=== PATIENT | male | born 1955 | race Caucasian/White ===

== ENCOUNTER 2016-06-23 15:54 | Emergency (ER) | payer OTHER ==
[2016-06-23 17:45] LABS: BASOPHILS 0.2 % (0.0-2.0); EOSINOPHILS 0.3 % (0-7); HEMATOCRIT 44.6 % (42.0-54.0); HEMOGLOBIN 15.7 g/dL (13.5-17.5); IMMATURE GRANULOCYTES 0.6 % (0-5); LYMPHOCYTES 22.5 % (15-50); MCH 32.8 pg (26.0-34.0); MCHC 35.2 g/dL (31.0-37.0); MCV 93.1 fL (80.0-100.0); MEAN PLATELET VOLUME 9.8 fL (7.4-10.4); MONOCYTES 8.1 % (2-11); NEUTROPHILS 68.3 % (40-80); RBC 4.79 10x6/uL (4.20-6.10); RDW 14.4 % (11.5-14.5); WBC 12.3 10x3/uL (4.8-10.8)
[2016-06-23 17:47] LABS: PLATELET COUNT 478 10x3/uL (130-400)
[2016-06-23 18:01] LABS: ALBUMIN 4.1 g/dL (3.4-5.0); ALKALINE PHOSPHATASE 168 U/L (46-116); ALT (SGPT) 87 U/L (10-68); BILIRUBIN - TOTAL 0.83 mg/dL (0.2-1.3); CALC OSMOLALITY 277 mosm/kg (275-300); CALCIUM 9.2 mg/dL (8.5-10.1); CARBON DIOXIDE 29.5 mmol/L (21.0-32.0); CHLORIDE - SERUM 98 mmol/L (98-107); CREATININE - SERUM 0.8 mg/dL (0.6-1.3); GLUCOSE 88 mg/dL (74-106); POTASSIUM - SERUM 3.8 mmol/L (3.5-5.1); PROTEIN - SERUM 7.4 g/dL (6.4-8.2); SODIUM 140 mmol/L (136-145); UREA NITROGEN 13 mg/dL (7-18); eGFR NON AFRICAN AMERICAN > 90 mL/min (90-120)
[2016-06-23 18:13] LABS: CHOL - HDL RATIO 2.2 ratio (2.3-4.9); CHOLESTEROL, TOTAL 249 mg/dL (0-200); CREATINE KINASE 740 UL (21-232); HDL CHOLESTEROL 113 mg/dL (32-96); LDL CHOLESTEROL 117 mg/dL (0-100); TRIGLYCERIDE 98 mg/dL (30-200)
[2016-06-23 18:16] LABS: TROPONIN-I < 0.017 ng/mL (0.000-0.060)
== END 2016-06-23 21:09 | disposition short-term general hospital (02) ==
LOC: D.ER 15:54
PROVIDERS: Nurse Practitioner Acute Care
DX: R07.9 Chest pain, unspecified (principal); F10.10 Alcohol abuse, uncomplicated; J45.909 Unspecified asthma, uncomplicated; J44.9 Chronic obstructive pulmonary disease, unspecified; I10 Essential (primary) hypertension; E87.1 Hypo-osmolality and hyponatremia; E87.6 Hypokalemia; F17.200 Nicotine dependence, unspecified, uncomplicated; R00.0 Tachycardia, unspecified

== ENCOUNTER 2016-08-31 05:59 | Observation (INO) | payer OTHER ==
[2016-08-31] VITALS (7 sets, daily range): BP systolic 145–171; BP diastolic 90–100; Ht 165.1 cm; Wt 66.8 kg
[~2016-08-31] VITALS: Ht 165.1 cm; Wt 66.8 kg
[2016-08-31 06:47] LABS: BASOPHILS 0.2 % (0-2); EOSINOPHILS 0.1 % (0-7); HEMATOCRIT 41.4 % (42.0-54.0); HEMOGLOBIN 14.7 g/dL (13.5-17.5); IMMATURE GRANULOCYTES 0.9 % (0-5); LYMPHOCYTES 23.7 % (15-50); MCH 32.2 pg (26.0-34.0); MCHC 35.5 g/dL (31.0-37.0); MCV 90.6 fL (80.0-100.0); MEAN PLATELET VOLUME 9.3 fL (7.4-10.4); MONOCYTES 8.7 % (2-11); NEUTROPHILS 66.4 % (40-80); RBC 4.57 10x6/uL (4.20-6.10); RDW 15.1 % (11.5-14.5); WBC 13.9 10x3/uL (4.8-10.8)
[2016-08-31 06:49] LABS: PLATELET COUNT 265 10x3/uL (130-400)
[2016-08-31 06:57] LABS: ALBUMIN 3.9 g/dL (3.4-5.0); ALKALINE PHOSPHATASE 159 U/L (46-116); ALT (SGPT) 35 U/L (10-68); BILIRUBIN - TOTAL 0.66 mg/dL (0.2-1.3); CALC OSMOLALITY 273 mosm/kg (275-300); CALCIUM 8.8 mg/dL (8.5-10.1); CHLORIDE - SERUM 94 mmol/L (98-107); GLUCOSE 90 mg/dL (74-106); POTASSIUM - SERUM 3.6 mmol/L (3.5-5.1); PROTEIN - SERUM 7.5 g/dL (6.4-8.2); SODIUM 137 mmol/L (136-145); UREA NITROGEN 13 mg/dL (7-18); eGFR NON AFRICAN AMERICAN 81 mL/min (90-120)
[2016-08-31 07:10] LABS: CREATINE KINASE 202 UL (21-232)
[2016-08-31 07:13] LABS: TROPONIN-I < 0.017 ng/mL (0.000-0.060)
[2016-08-31 10:28] LABS: CKMB 2.1 U/L (0.0-3.6); CREATINE KINASE 205 UL (21-232); TROPONIN-I < 0.017 ng/mL (0.000-0.060)
--- NOTE | 2016-08-31 11:28 | NUR ---
1030 PT ADMITTED TOT THE ICU VIA WHEELCHAIR.. PT IS AWAKE AND ALERT STATES THAT HE TRIED TO KILL HIMSELF BY DRINKING LISTERINE HE HAS CHRONIS DEPRESSION AND HE HAS ATTEMPTED THIS BEFORE.. THERE IS A MIDLINE IV IN THE RIGHT UPPER INNER ARM AND A MVI IV BAG INFUSING.. SEE ADMISSION ASSESMENT FOR FINDINGS.. 1045 DR FLORES IN TO SEE PT PT IS REQQUESTING FOOD AND SOMETHING FOR HIS NERVES.. REG AHA DIET ORDERED AND ATIVAN IV.. 1100 ATIVAN GIVEN..
[2016-08-31 13:52] LABS: UDS - AMPHET NEGATIVE QUAL (NEGATIVE); UDS - BARB NEGATIVE QUAL (NEGATIVE); UDS - BENZO NEGATIVE QUAL (NEGATIVE); UDS - COCAINE NEGATIVE QUAL (NEGATIVE); UDS - METH NEGATIVE QUAL (NEGATIVE); UDS - OPIATE NEGATIVE QUAL (NEGATIVE); UDS - PCP NEGATIVE QUAL (NEGATIVE); UDS - THC NEGATIVE QUAL (NEGATIVE)
--- NOTE | 2016-08-31 13:56 | NUR ---
1300 100% diet eaten.. 1330 urine obtained and sent to lab for ua and uds as ordered.. consult for psych sent to [facility] .. pt keeps asking about more ativan..
[2016-08-31 14:07] LABS: APPEARANCE CLEAR (CLEAR); BILIRUBIN NEGATIVE (NEGATIVE); COLOR YELLOW (YELLOW); GLUCOSE NEGATIVE (NEGATIVE); KETONE SMALL mg/dL (NEGATIVE); LEUKOCYTE ESTERASE NEGATIVE (NEGATIVE); NITRITE NEGATIVE (NEGATIVE); PROTEIN TRACE mg/dL (NEGATIVE); SPECIFIC GRAVITY 1.015 (1.005-1.020); UROBILINOGEN NORMAL (NORMAL)
[2016-08-31 14:08] LABS: BACTERIA NONE SEEN /hpf (NONE SEEN); EPITHELIAL CELLS NSEEN /hpf (0-5); RED CELLS - URINE 0-5 /hpf (0-5); WHITE CELLS - URINE NSEEN /hpf (0-5)
--- NOTE | 2016-08-31 15:19 | NUR ---
1415 PT IS HIGHLY ANXIOUS AND IS CONTINUOUSLY REQUESTING ATIVAN EXPLAINED THAT IT WAS ORDERED EVERY 4 HOURS.. 1515 ATIVAN GIVEN.. 1525 LAB DRAWN
--- NOTE | 2016-08-31 17:51 | NUR ---
1630 PT MORE SETTLED AT THIS TIME.. DIET SERVED AND PT IS SITTING ON SIDE OF BED FFEEDING SELF.. 1730 100-% DIET EATEN .. NICUOTINE PASTCH ORDERED AND PLACED ON THE PT..
[2016-08-31 18:57] LABS: CKMB 2.2 U/L (0.0-3.6); TROPONIN-I < 0.017 ng/mL (0.000-0.060)
[2016-08-31 18:58] LABS: CREATINE KINASE 304 UL (21-232)
--- NOTE | 2016-08-31 19:40 | NUR ---
ASSESSMENT COMPLETE. S1S2. RR CLEAR. PT AMBULATES FREQUENTLY. LEFT UPPER ARM; MIDLINE; PATENT. PERRLA. AAO. VSS. NO DISTRESS NOTED. REFUSES TO LEAVE ON BP CUFF OR ECG LEADS. WILL CONTINUE TO MONITOR.
--- NOTE | 2016-08-31 20:27 | NUR ---
PT REQUEST FOR ATIVAN. GIVEN PER ORDERS. SEE EMAR FOR DETAILS.
[2016-08-31 22:28] LABS: CKMB 1.5 U/L (0.0-3.6)
[2016-08-31 22:29] LABS: CREATINE KINASE 388 UL (21-232); TROPONIN-I < 0.017 ng/mL (0.000-0.060)
--- NOTE | 2016-08-31 23:30 | NUR ---
REASSESSMENT COMPLETE. NO CHANGES FROM PREVIOUS ASSESSMENT. WILL CONTINUE TO MONITOR.
[2016-09-01 01:00] VITALS: BP 160/98
--- NOTE | 2016-09-01 01:38 | NUR ---
PT REQUEST ATIVAN. GIVEN PER ORDERS. SEE EMAR FOR DETAILS.
--- NOTE | 2016-09-01 03:15 | NUR ---
REASSESSMENT COMPLETE. NO CHANGES FROM PREVIOUS ASSESSMENT.
--- NOTE | 2016-09-01 07:00 | NUR ---
PT LYING IN BED AND APPEARS COMFORTABLE. GIVEN ATIVAN PER MARKETING SERVICES COORDINATOR. PT REFUSES TO STAY ON MONITOR. WILL CHECK VITAL SIGNS PT ALLOWS. NO CHANGES IN STATUS. WILL CONITNUE TO MONITOR
[2016-09-01 10:00] VITALS: BP 141/97
[2016-09-01] MEDS ORDERED: NORVASC5 MG PO (10:11)
[2016-09-01] MEDS ORDERED: BAYER CHEWABLE81 MG PO (10:11)
[2016-09-01] MEDS ORDERED: LIPITOR80 MG PO (10:12)
[2016-09-01] MEDS ORDERED: BACLOFEN20 M1 PO (10:13)
[2016-09-01] MEDS ORDERED: BUSPAR10 MG PO (10:14)
[2016-09-01] MEDS ORDERED: OPTIVE EYE DROP30 ML EACH EYE (10:16)
[2016-09-01] MEDS ORDERED: FOLIC ACID1 MG PO (10:17)
[2016-09-01] MEDS ORDERED: VITAMIN B-121000 MCG PO (10:17)
[2016-09-01] MEDS ORDERED: NEURONTIN800 MG PO (10:18)
[2016-09-01] MEDS ORDERED: IBUPROFEN400 MG PO (10:19)
[2016-09-01] MEDS ORDERED: LEVO-T112 MCG PO (10:19)
[2016-09-01] MEDS ORDERED: LIDOCAINE50 GM TOPICAL (10:20)
[2016-09-01 10:22] LABS: ALBUMIN 3.7 g/dL (3.4-5.0); ALKALINE PHOSPHATASE 156 U/L (46-116); ALT (SGPT) 31 U/L (10-68); BILIRUBIN - TOTAL 1.66 mg/dL (0.2-1.3); CALCIUM 8.5 mg/dL (8.5-10.1); CHLORIDE - SERUM 90 mmol/L (98-107); CREATININE - SERUM 0.8 mg/dL (0.6-1.3); GLUCOSE 131 mg/dL (74-106); POTASSIUM - SERUM 3.8 mmol/L (3.5-5.1); SODIUM 129 mmol/L (136-145); eGFR NON AFRICAN AMERICAN > 90 mL/min (90-120)
[2016-09-01] MEDS ORDERED: METOPROLOL TART25 MG PO (10:23)
[2016-09-01 10:24] LABS: CALC OSMOLALITY 258 mosm/kg (275-300); CARBON DIOXIDE 30.4 mmol/L (21.0-32.0); UREA NITROGEN 7 mg/dL (7-18)
[2016-09-01] MEDS ORDERED: REMERON15 MG PO (10:24)
[2016-09-01] MEDS ORDERED: MULTI-DAY VITAM1 TAB PO (10:26)
[2016-09-01] MEDS ORDERED: BACTROBAN CREAM15 GM TOPICAL (10:27)
[2016-09-01] MEDS ORDERED: NICODERM C1 PATCH .3 TRANSDERM (10:28)
[2016-09-01] MEDS ORDERED: REVIA50 MG PO (10:28)
[2016-09-01] MEDS ORDERED: MINIPRESS 5 MG C5 MG PO (10:29)
[2016-09-01] MEDS ORDERED: NICORETTE2 MG PO (10:29)
[2016-09-01] MEDS ORDERED: THIAMINE HCL50 MG PO (10:32)
[2016-09-01] MEDS ORDERED: VIAGRA100 MG PO (10:32)
[2016-09-01 10:41] LABS: BASOPHILS 0.1 % (0-2); EOSINOPHILS 0.8 % (0-7); HEMATOCRIT 39.5 % (42.0-54.0); HEMOGLOBIN 13.9 g/dL (13.5-17.5); IMMATURE GRANULOCYTES 0.5 % (0-5); LYMPHOCYTES 32.5 % (15-50); MCH 31.6 pg (26.0-34.0); MCHC 35.2 g/dL (31.0-37.0); MCV 89.8 fL (80.0-100.0); MEAN PLATELET VOLUME 9.4 fL (7.4-10.4); MONOCYTES 14.8 % (2-11); NEUTROPHILS 51.3 % (40-80); PLATELET COUNT 304 10x3/uL (130-400); WBC 15.5 10x3/uL (4.8-10.8)
--- NOTE | 2016-09-01 11:00 | NUR ---
Is the patient Alert and Oriented? Yes 0 * How many steps to enter\exit or inside your home? 0 0 * PCP [facility] [place], [place] 0 * [facility] * Preadmission Environment Home Alone 0 * ADLs Independent 0 * Equipment Cane 0 * List name and contact numbers for known caregivers / representatives who currently or will assist patient after discharge: PATIENT STATES NO FAMILY OR FRIENDS TO ASSIST HIM 0 * Community resources currently utilized None 0 * Additional services required to return to the preadmission environment? Yes 0 * Can the patient safely return to the preadmission environment? No 0 * Has this patient been hospitalized within the prior 30 days at any hospital? No PATIENT IS AWAKE AND ALERT. HE STATES HE SEES A PSYCHIATRIST, DR. MAINOR BOND AT THE [facility] [place]. HE [facility]. PATIENT STATES HE LIVES ALONE AND IS INDEPENDENT IN HIS ADL'S. HE STATES HE HAS BEEN LIVING AT A MOTEL. PATIENT STATES HIS PCP IS AT THE [facility] AND STATES: [id number] IS THE NAME. HE CANNOT PRONOUNCE THE MD NAME. PATIENT GETS HIS MEDS FROM THE [facility] [place]. HE USES A CANE. HE STATES HE HAS NEVER HAD HOME HEALTH CARE. HE STATES THERE ARE NO STEPS TO ENTER HIS MOTEL ROOM. PATIENT DENIES HAVING ANY FAMILY OR FRIENDS TO ASSIST HIM. HE STATES HE HAS AN UNCLE OUT OF TOWN BY DOES NOT KNOW HIS NUMBER. WILL CONTACT [facility] EXPEDITOR TO ATTEMPT TO GET PATIENT ON LIST FOR TRANSFER. CM TO FOLLOW.
--- NOTE | 2016-09-01 11:36 | NUR ---
I [facility] [place] AT [phone]. I SPOKE WITH DORINDA AND SHE IS SENDING A REFERRAL TO [facility]ED TEACH[facility], [facility] LARIOS. MAXIME CALLED ME BACK AND IS REQUESTING INFORMATION BE FAXED TO HER. CM TO FOLLOW.
--- NOTE | 2016-09-01 14:14 | NUR ---
INFORMATION WAS FAXED TO THE [facility]. I SPOKE WITH KOREY NELSON AT [phone]. SHE STATES THAT PATIENT IS NOT MEDICALLY STABLE AT THIS TIME WITH A NA 129 AND HIS WBC IS UP TO 15 TODAY FROM 13 YESTERDAY. SHE SUGGESTED THAT I MAKE REFERRAL FOR MEDICAL BED. I CONTACTED [place] BED EXPEDITOR, PETER, AND REQUESTED MEDICAL BED. SHE STATES THAT SHE WILL PLACE REQUEST FOR MED BED BUT PROBABLY WILL NOT HAPPEN TODAY DUE TO BED AVAILABILITY. WILL AWAIT CALL BACK REGARDING MED BED. CM TO FOLLOW.
--- NOTE | 2016-09-01 15:00 | NUR ---
PT RESTING COMFORTABLY AT THIS TIME. WAITING FOR INPATIENT PSYCH PLACEMENT.
[2016-09-01 20:00] VITALS: BP 151/106
--- NOTE | 2016-09-01 20:00 | NUR ---
ASSESSMENT COMPLETE, PT IS ALERT AND ORIENTED, ON RA WITH 97% O2 SAT. LUNGS CLEAR IN ALL LOBES, S1S2, CM-NSR, PATENT LEFT A/C PIV S/L. ABDOMEN IS SOFT AND ROUND WITH ACTIVE BS, URINAL AT BEDSIDE, ALL PPP, VSS, CALL LIGHT IN REACH
--- NOTE | 2016-09-01 21:15 | NUR ---
HS MEDS GIVEN, NO VISITORS AT THIS TIME, WILL CON'T TO MONITOR
[2016-09-01 23:00] VITALS: BP 127/90
--- NOTE | 2016-09-01 23:16 | NUR ---
REASSESSMENT COMPLETE, PT HAVING SM ANXIETY ATTACK, PRN ATIVAN GIVEN, PT MORE CALM AT THIS TIME
--- NOTE | 2016-09-02 01:00 | NUR ---
PT RESTING AT THIS TIME, NO NEEDS NOTED, WILL CON'T TO MONITOR
[2016-09-02 04:38] LABS: BASOPHILS 0.1 % (0-2); EOSINOPHILS 2.2 % (0-7); HEMATOCRIT 37.6 % (42.0-54.0); HEMOGLOBIN 13.3 g/dL (13.5-17.5); IMMATURE GRANULOCYTES 0.8 % (0-5); LYMPHOCYTES 33.8 % (15-50); MCH 32.4 pg (26.0-34.0); MCHC 35.4 g/dL (31.0-37.0); MCV 91.5 fL (80.0-100.0); MEAN PLATELET VOLUME 9.7 fL (7.4-10.4); NEUTROPHILS 53.1 % (40-80); PLATELET COUNT 297 10x3/uL (130-400); RBC 4.11 10x6/uL (4.20-6.10); RDW 14.8 % (11.5-14.5)
[2016-09-02 04:48] LABS: WBC 11.2 10x3/uL (4.8-10.8)
[2016-09-02 04:51] LABS: INR 0.95 (0.85-1.17); PROTIME 12.6 SECONDS (11.6-15.0)
[2016-09-02 05:23] LABS: ALBUMIN 3.3 g/dL (3.4-5.0); ALKALINE PHOSPHATASE 126 U/L (46-116); ALT (SGPT) 30 U/L (10-68); BILIRUBIN - TOTAL 1.17 mg/dL (0.2-1.3); C-REACTIVE PROTEIN 3.8 mg/dL (0.0-0.9); CALCIUM 8.5 mg/dL (8.5-10.1); CARBON DIOXIDE 29.1 mmol/L (21.0-32.0); CHLORIDE - SERUM 89 mmol/L (98-107); CREATININE - SERUM 0.8 mg/dL (0.6-1.3); GLUCOSE 96 mg/dL (74-106); PROTEIN - SERUM 6.6 g/dL (6.4-8.2); SODIUM 128 mmol/L (136-145); eGFR NON AFRICAN AMERICAN > 90 mL/min (90-120)
[2016-09-02 05:31] LABS: CALC OSMOLALITY 255 mosm/kg (275-300); POTASSIUM - SERUM 2.5 mmol/L (3.5-5.1); UREA NITROGEN 11 mg/dL (7-18)
--- NOTE | 2016-09-02 07:00 | NUR ---
ASSESSMENT COMPLETE PER FLOWSHEET. VOICES NO CO AT TIME.
[2016-09-02 08:00] VITALS: BP 129/89
--- NOTE | 2016-09-02 09:48 | NUR ---
CM REASSESSMENT NOTE: DEREK SPOKE WITH KATHRYN (CORNICE MAKER) AT [facility] REGARDING AVAILABILITY OF BEDS FOR PATIENT. KATHRYN STATED MA IS ON DIVERSION AT THIS TIME.
--- NOTE | 2016-09-02 10:00 | NUR ---
SLEEPING NO DISTRESS NOTED. SR UP X 2.
--- NOTE | 2016-09-02 11:29 | NUR ---
REFUSES TO WEAR RECRUITING COORDINATOR.
[2016-09-02 17:31] LABS: CALC OSMOLALITY 248 mosm/kg (275-300); CALCIUM 8.9 mg/dL (8.5-10.1); CARBON DIOXIDE 23.2 mmol/L (21.0-32.0); CHLORIDE - SERUM 90 mmol/L (98-107); CREATININE - SERUM 0.9 mg/dL (0.6-1.3); GLUCOSE 122 mg/dL (74-106); SODIUM 123 mmol/L (136-145); UREA NITROGEN 12 mg/dL (7-18); eGFR NON AFRICAN AMERICAN > 90 mL/min (90-120)
--- NOTE | 2016-09-02 18:09 | NUR ---
SODIUM 123 ON REPEATE LABS. CALLED AND REPORTED TO AMANDEEP LANDIS. REC'D ORDER FOR NS GENNY.
[2016-09-02 19:30] VITALS: BP 140/105
--- NOTE | 2016-09-02 19:30 | NUR ---
REPORT RECIEVED. ASSESSMENT COMPLETED. IV TUBING CHANGED LABLED AND SWAB CAPPED. PT LEFT WANTING TO GO TO SLEEP.
--- NOTE | 2016-09-02 22:00 | NUR ---
PT UP TO BSC. BACK IN BED AND POSITIONED FOR COMFORT.
--- NOTE | 2016-09-03 | NUR ---
PT SLEEPING WITH EYES CLOSED.
[2016-09-03 04:19] LABS: BASOPHILS 0.2 % (0-2); EOSINOPHILS 2.5 % (0-7); HEMATOCRIT 37.5 % (42.0-54.0); HEMOGLOBIN 12.9 g/dL (13.5-17.5); IMMATURE GRANULOCYTES 0.9 % (0-5); LYMPHOCYTES 32.4 % (15-50); MCH 31.9 pg (26.0-34.0); MCHC 34.4 g/dL (31.0-37.0); MCV 92.6 fL (80.0-100.0); MEAN PLATELET VOLUME 9.7 fL (7.4-10.4); MONOCYTES 11.3 % (2-11); NEUTROPHILS 52.7 % (40-80); PLATELET COUNT 306 10x3/uL (130-400); RBC 4.05 10x6/uL (4.20-6.10); RDW 14.7 % (11.5-14.5); WBC 12.7 10x3/uL (4.8-10.8)
[2016-09-03 04:36] LABS: CALC OSMOLALITY 268 mosm/kg (275-300); CALCIUM 8.7 mg/dL (8.5-10.1); CARBON DIOXIDE 28.4 mmol/L (21.0-32.0); CHLORIDE - SERUM 98 mmol/L (98-107); CREATININE - SERUM 0.9 mg/dL (0.6-1.3); GLUCOSE 95 mg/dL (74-106); POTASSIUM - SERUM 3.7 mmol/L (3.5-5.1); SODIUM 134 mmol/L (136-145); UREA NITROGEN 14 mg/dL (7-18); eGFR NON AFRICAN AMERICAN > 90 mL/min (90-120)
[2016-09-03 09:00] VITALS: BP 135/92; BP 145/78
--- NOTE | 2016-09-03 09:42 | NUR ---
I SPOKE WITH DORINDA AT THE [facility]. SHE IS GOING TO GIVE THE TRANSFER INFORMATION TO MAXIME LARIOS APN. SHE WILL MAKE DETERMINATION IF HE CAN COME TO THE [facility] AND CALL ME FOR TRANSFER. THEY WERE GIVEN DR. FLORES'S CELL NUMBER FOR DOC TO DOC IF NEEDED. CM TO FOLLOW.
--- NOTE | 2016-09-03 09:51 | NUR ---
NUTRITION MONITORING & EVAL CHART REVIEWED. REMAINS AT LOW NUTRITIONAL RISK. RD FOLLOWING
--- NOTE | 2016-09-03 10:03 | NUR ---
RECEIVED CALL BACK FROM KOREY NELSON AT [facility]. SHE ASKED THAT I FAX HER THE UPDATED LAB TO [phone]. HER NUMBER IS [phone]. I HAVE FAXED UPDATED INFORMATION TO HER FOR REVIEW AND WILL AWAIT CB.
--- NOTE | 2016-09-03 14:28 | NUR ---
I RECEIVED CB FROM KOREY NELSON AT [facility]. SHE STATES THAT THE PSYCH DR. COWART REQUESTS THAT WE DO A REPEAT CBC, LYTES, CHEST XRAY AND HAVE THE PHYSICIAN DO A MS EXAM. WILL AWAIT RESULTS AND FAX TO HER FOR REVIEW. KOREY NELSON PHONE [phone], FAX [phone].
[2016-09-03 15:48] LABS: BASOPHILS 0.1 % (0-2); EOSINOPHILS 2.2 % (0-7); HEMATOCRIT 37.4 % (42.0-54.0); HEMOGLOBIN 12.9 g/dL (13.5-17.5); IMMATURE GRANULOCYTES 0.7 % (0-5); LYMPHOCYTES 32.4 % (15-50); MCH 32.5 pg (26.0-34.0); MCHC 34.5 g/dL (31.0-37.0); MCV 94.2 fL (80.0-100.0); MEAN PLATELET VOLUME 9.8 fL (7.4-10.4); MONOCYTES 8.5 % (2-11); NEUTROPHILS 56.1 % (40-80); PLATELET COUNT 322 10x3/uL (130-400); RBC 3.97 10x6/uL (4.20-6.10); RDW 14.8 % (11.5-14.5); WBC 15.6 10x3/uL (4.8-10.8)
[2016-09-03 16:03] LABS: CALC OSMOLALITY 268 mosm/kg (275-300); CALCIUM 9.2 mg/dL (8.5-10.1); CHLORIDE - SERUM 98 mmol/L (98-107); CREATININE - SERUM 0.9 mg/dL (0.6-1.3); GLUCOSE 98 mg/dL (74-106); SODIUM 134 mmol/L (136-145); UREA NITROGEN 14 mg/dL (7-18); eGFR NON AFRICAN AMERICAN > 90 mL/min (90-120)
--- NOTE | 2016-09-03 18:25 | NUR ---
PT SHOWERED, LINENS CHANGED AND PAPER SCRUBS PROVIDED.
[2016-09-03 19:00] VITALS: BP 138/92
--- NOTE | 2016-09-03 19:00 | NUR ---
REPORT RECIEVED, SHIFT ASSESSMENT COMPLETE, PT IS ALERT AND ORIENTED, ON RA WITH 98% O2 SAT. LUNGS CLEAR IN ALL LOBES, S1S2, CM-NSR, PATENT RIGHT UPPER ARM MIDLINE, S/L, ABDOMEN IS SOFT AND FLAT WITH ACTIVE BS, URINAL AND BSC AT BEDSIDE, NO EDEMA NOTED, ALL PPP, VSS, CALL LIGHT IN REACH
--- NOTE | 2016-09-03 21:15 | NUR ---
PT ANXIOUS AT THIS TIME, PRN ATIVAN GIVEN
[2016-09-03 23:00] VITALS: BP 150/96
--- NOTE | 2016-09-03 23:05 | NUR ---
REASSESSMENT COMPLETE, NO CHANGES NOTED, PT RESTING AT THIS TIME, NO NEEDS NOTED, WILL CON'T TO MONITOR
--- NOTE | 2016-09-04 01:00 | NUR ---
PT RESTING COMFORTABLY AT THIS TIME, WILL CON'T TO MONITOR
[2016-09-04 03:00] VITALS: BP 144/89
--- NOTE | 2016-09-04 03:15 | NUR ---
REASSESSMENT COMPLETE, NO CHANGES NOTED, PT RESTING COMFORTABLY AT THIS TIME, DENIES ANY NEEDS OR WANTS,
--- NOTE | 2016-09-04 05:00 | NUR ---
NO NEEDS NOTED AT THIS TIME, WILL CON'T TO MONITOR
[2016-09-04 08:00] VITALS: BP 147/111
--- NOTE | 2016-09-04 08:10 | NUR ---
PT AWAKE AND ORIENTED, C/O ANXIETY. ATIVAN ORDERED AND GIVEN PRN.
[2016-09-04 10:18] LABS: CALC OSMOLALITY 273 mosm/kg (275-300); CALCIUM 8.5 mg/dL (8.5-10.1); CARBON DIOXIDE 23.3 mmol/L (21.0-32.0); CHLORIDE - SERUM 102 mmol/L (98-107); CREATININE - SERUM 0.8 mg/dL (0.6-1.3); GLUCOSE 112 mg/dL (74-106); POTASSIUM - SERUM 3.9 mmol/L (3.5-5.1); SODIUM 137 mmol/L (136-145); UREA NITROGEN 11 mg/dL (7-18); eGFR NON AFRICAN AMERICAN > 90 mL/min (90-120)
[2016-09-04 10:41] LABS: BASOPHILS 0.1 % (0-2); EOSINOPHILS 2.2 % (0-7); HEMATOCRIT 34.5 % (42.0-54.0); HEMOGLOBIN 11.7 g/dL (13.5-17.5); IMMATURE GRANULOCYTES 0.6 % (0-5); LYMPHOCYTES 28.2 % (15-50); MCH 31.9 pg (26.0-34.0); MCHC 33.9 g/dL (31.0-37.0); MEAN PLATELET VOLUME 9.4 fL (7.4-10.4); MONOCYTES 8.6 % (2-11); NEUTROPHILS 60.3 % (40-80); PLATELET COUNT 321 10x3/uL (130-400); RBC 3.67 10x6/uL (4.20-6.10); RDW 15.1 % (11.5-14.5); WBC 14.8 10x3/uL (4.8-10.8)
--- NOTE | 2016-09-04 11:49 | NUR ---
PTS CALLS WITH [employer] AND PT STATES THAT SHE WANTS TO TAKE PT HOE WITH HER AND FOR HIM NOT TO GO TO [facility]IENT [facility].
--- NOTE | 2016-09-04 13:13 | NUR ---
PT STATES THAT HE WANTS TO GO WITH WHEN SHE GETS HERE. I INSTRUCTED TOPT THAT I DID NOT HAVE A DC ORDER. C NOTIFIED AND CM SPOKE TO DR FLORES. RECONSULT FOR PSYCH DONE.
--- NOTE | 2016-09-04 13:17 | NUR ---
DEREK REC. CALL FROM EVGENY (ICU NURSE) REGARDING PATIENTS COMING AFTER HIM AT 3:00PM TODAY. CM SPOKE WITH PATIENT AND HE STATED HE WAS NOT SUICIDAL. DEREK CALLED DR. FLORES AND EXPLAINED WHAT HAD PLANNED AND HE STATED TO CONSULT PSYCH AGAIN. DEREK SPOKE WITH EVGENY IN ICU REGARDING DR. GOLDBERG RECOMMENDATION. CM WILL CONTINUE TO FOLLOW PATIENT WITH D/C NEEDS AND PLANS.
--- NOTE | 2016-09-04 14:24 | NUR ---
DR MI PHONED AND SPOKE TO THIS RN. DR MI STATES THAT THE RECOMENDATIONS ON THE CHART WILL REMAIN THE SAME AND THAT THE RECOMENDATIONS ARE FOR PT TO GO INPATIENT.
--- NOTE | 2016-09-04 14:29 | NUR ---
CM REASSESSMENT NOTE: DR. FLORES SPOKE WITH MED DYSLEXIA TEACHER (KOREY NELSON) REGARDING PATIENT. DR. FLORES WAITING CIRCULAR DISTRIBUTOR FROM PHYSICIAN AT [facility].
--- NOTE | 2016-09-04 14:29 | NUR ---
SPOKE TO DR FLORES AND REPORTED CONVERSATION WITH DR MI. DR FLORES STATES THAT HE IS EXPECTING TO RECEIVE A PH[facility] CALL FROM [facility] SO[facility].
--- NOTE | 2016-09-04 14:31 | NUR ---
CM REASSESSMENT NOTE: DR. FLORES SPOKE WITH MED CARGO TRIMMER (KOREY NELSON) REGARDING PATIENT. DR. FLORES WAITING CARRIER DRIVER FROM PHYSICIAN AT [facility].
[2016-09-04] MEDS ORDERED: METOPROLOL TART25 MG PO (14:53)
[2016-09-04] MEDS ORDERED: K-TAB10 MEQ PO (14:54)
--- NOTE | 2016-09-04 14:55 | NUR ---
DR FLORES AT . HE SPOKE TO PT ABOUT GOING TO [facility] PT STATES THAT HE AGREES TO GO BY AMBULANCE. AWAITING A ROOOM NUMBER.
--- NOTE | 2016-09-04 16:50 | NUR ---
HERE, SHE BEGAN TO DEAND THAT SHE IS TAKING PT OUT WITH HER. UNABLE TO REDIRECT BY EXPLANING POC. SECURITY CALLED. ALLOWED TO VISIT FOR 10IN WITH SECURITY STANDING BY THEN SHE WAS EXCORTED OUT BY SECURITY.
--- NOTE | 2016-09-04 19:30 | NUR ---
PATIENT DISCHARGED TO [place] VIA EMS.
--- NOTE | 2016-09-04 19:39 | NUR ---
[facility] CALLED TO [facility] [place]. EMS CALLED FOR TRANSPORT.
== END 2016-09-04 19:56 | disposition short-term general hospital (02) ==
LOC: D.ER 05:59 → OBSVTIME 09:42 → D.ICU 09:42
PROVIDERS: Emergency Medicine; Emergency Medicine Emergency Medical Services; ADMIT Family Medicine
DX: T51.0X2A Toxic effect of ethanol, intentional self-harm, initial encounter (principal); F10.231 Alcohol dependence with withdrawal delirium; I25.10 Atherosclerotic heart disease of native coronary artery without angina pectoris; I10 Essential (primary) hypertension; F33.9 Major depressive disorder, recurrent, unspecified; F43.10 Post-traumatic stress disorder, unspecified; F41.9 Anxiety disorder, unspecified; E87.6 Hypokalemia; Y90.8 Blood alcohol level of 240 mg/100 ml or more; J44.9 Chronic obstructive pulmonary disease, unspecified; Z95.5 Presence of coronary angioplasty implant and graft; D58.0 Hereditary spherocytosis; Z72.0 Tobacco use